=== PATIENT | female | born 1980 | race Caucasian/White ===

== ENCOUNTER 2022-12-18 17:43 | Emergency (ER) | payer OTHER, SELFPAY ==
[2022-12-18 17:49] VITALS: BP 130/88; PULSE 72; RESP 20; TEMP 36.2; O2SAT 100; BMI 32.1
--- NOTE | 2022-12-18 18:13 | ED.GENADULT ---
HPI - General Adult General Date Seen: 12/18/22 Chief complaint: Back Injury/Pain Stated complaint: Pain right below ribs in back, cramps Time Seen by Provider: 12/18/22 17:44 Source: patient Mode of arrival: ambulatory Limitations: no limitations History of Present Illness HPI narrative: Patient is a 42-year-old woman who presents for evaluation of some back pain, abdominal cramping and diarrhea. She says a couple weeks ago she was playing volleyball and she pulled a muscle in the right side of her back. It had been gradually improving but when driving home from the cabin today it seemed to get worse. She had also used if they are going to which she felt like made it worse. She says then she started to develop other symptoms and became worried that maybe it was not a pulled muscle after all. She has had some lower abdominal cramping today which she says feels sort of like period cramps but she has not had a period for 9 months or so, she believe she is perimenopausal. She is not having any vaginal bleeding. She did have some nonbloody diarrhea, little bit of nausea but she has had a normal appetite today, ate breakfast and lunch. She has not had any vomiting, denies fevers. She has not had urinary symptoms. She says she talked to a chiropractor friend who said that if she was having cramping she should be seen in the ER. Related Data Previous Rx's Medication Instructions Recorded amoxicillin 875 mg tablet 875 mg PO BID #20 tabs 04/21/22 Allergies Allergy/AdvReac Type Severity Reaction Status Date / Time No Known Drug Allergies Allergy Verified 04/21/22 07:49 Review of Systems Status of ROS: Reports: 10 or more systems reviewed and unremarkable except as noted in History and below PFSH PFS Social History Smoking Status: Never smoker Do you use any of these nicotine containing products: None Second hand tobacco smoke exposure: No How often do you have a drink containing alcohol: 2-3 times a week How many standard drinks containing alcohol do you have on a typical day: 1 or 2 How often do you have six or more drinks on one occasion: Monthly AUDIT-C Alcohol total score: 5 Non-prescribed substance use: denies use service: No Exam Narrative: Exam Narrative: Vital signs as noted above. In general, an alert, well-appearing patient. Head: Normocephalic, atraumatic. Eyes: Pupils are equal reactive. Extraocular movements are full. Conjunctivae are normal. ENT: Mucous membranes are moist. Throat is normal. Neck: Supple without lymphadenopathy. Heart: Regular rate and rhythm. No murmur or rub. Lungs: Clear bilaterally. No increased work of breathing, crackles or wheezes. No CVA tenderness. Back: She does have some reproducible tenderness in the right lower lateral ribcage. No bruising, no rashes. Abdomen: Soft and nontender. No organomegaly. Extremities: Well perfused. No edema. No calf tenderness. Pulses intact. Neurologic: Patient is alert and oriented to person and place. Speech is fluent. Face is symmetric. Moves all extremities equally. Affect: Normal. Skin: Warm and dry. Well perfused. Const: Vital Signs, click to edit/add: Vital Signs - 24 hr 12/18/22 17:49 Temperature 97.2 F L Pulse Rate [Pulse Oximeter] 72 Respiratory Rate 20 Blood Pressure [Ri ght Forearm] 130/88 Pulse Oximetry 100 Oxygen Delivery Me thod Room Air Documenting provider has reviewed patient's vital signs: yes Course Course Hospital Course: Overall she is well-appearing. Discussed that they abdominal cramping certainly can go along with the diarrhea which often is viral. Will check a urine and rule out urinary tract infection, pyelonephritis, screen for kidney stone. Her abdominal exam is very benign, I do not at this time see indication for imaging. Labs pending. She declines the need for fluids, medications for pain or nausea. Urinalysis is entirely negative. White blood cell count is normal, CRP negative. Hemoglobin 13. LFTs are normal with the exception of a mildly elevated ALT at 42. Lactate is 1.5. Have discussed with her that her labs are normal which she finds reassuring. I think she probably does have musculoskeletal back pain from a muscle strain a couple weeks ago and then coincidental onset of diarrhea which he says she is not overly surprising about as she has been on vacation, her diet has been poor, and she has been on the heat all we can. She denies recent antibiotics or non city water. Would recommend supportive care, ibuprofen, Tylenol, fluids. If not improving primary care follow-up. Return to ER for severe abdominal pain, fevers, vomiting, bloody stools or other acute changes. Vital Signs Vital signs: Initial Vital Signs Temperature 97.2 F L 12/18/22 17:49 Temperature Source Temporal Artery Scan 12/18/22 17:49 Pulse Rate 72 12/18/22 17:49 Pulse Rhythm Regular 12/18/22 17:49 Respiratory Rate 20 12/18/22 17:49 Blood Pressure 130/88 12/18/22 17:49 Blood Pressure Mean 102 12/18/22 17:49 Blood Pressure Position Sitting 12/18/22 17:49 Pulse Oximetry 100 12/18/22 17:49 Oxygen Delivery Method Room Air 12/18/22 17:49 Vital Signs Temperature 97.2 F L 12/18/22 17:49 Pulse Rate 72 12/18/22 17:49 Respiratory Rate 20 12/18/22 17:49 Blood Pressure 130/88 12/18/22 17:49 Pulse Oximetry 100 12/18/22 17:49 Oxygen Delivery Method Room Air 12/18/22 17:49 Temperature 97.2 F L 12/18/22 17:49 Pulse Rate 72 12/18/22 17:49 Respiratory Rate 12/18/22 17:49 Blood Pressure 130/88 12/18/22 17:49 Pulse Oximetry 100 12/18/22 17:49 Oxygen Delivery Method Room Air 12/18/22 17:49 Medical Decision Making Lab Data Labs: Lab Results 12/18/22 12/18/22 Range/Units 18:20 18:25 WBC 6.23 (4.50-11.00) K/uL RBC 4.46 (4.00-5.20) m/uL Hgb 13.0 (12.0-16.0) gm/dL Hct 39.3 (33.0-51.0) % MCV 88 (80-100) fL MCH 29 (26-34) pg MCHC 33 (32-36) gm/dL RDW Coeff of Robin 12.1 (11.5-15.5) % Plt Count 184 (140-440) K/uL Neut % (Auto) 60.4 (42.0-72.0) % Lymph % (Auto) 28.4 (20-44) % [place] % (Auto) 8.7 (0.0-11.0) % Eos % (Auto) 1.3 (0.0-7.0) % Baso % (Auto) 0.6 (0.0-3.0) % Neut # (Auto) 3.76 (1.7-7.0) K/uL Lymph # (Auto) 1.77 (0.90-2.90) K/uL [place] # (Auto) 0.50 (0.00-0.90) K/UL Eos # (Auto) 0.08 (0.00-0.50) K/uL Baso # (Auto) 0.04 (0.00-0.30) K/uL Sodium 139 (135-149) mmol/L Potassium 4.4 (3.6-5.1) mmol/L Chloride 103 (96-114) mmol/L Carbon Dioxide 26 (20-32) mmol/L BUN 16 (5-24) mg/dL Creatinine 0.9 (0.5-1.5) mg/dL Estimated Creat Clear 79.19 Estimated GFR 82 ml/min Glucose 98 (60-115) mg/dL Lactate 1.5 (0.5-1.9) mmol/L Calcium 9.5 (8.4-10.6) mg/dL Total Bilirubin 0.6 (0.1-1.5) mg/dL Direct Bilirubin 0.2 (0.0-0.5) mg/dL AST 35 (12-35) U/L ALT 42 H (4-35) U/L Alkaline Phosphatase 58 (40-150) U/L C-Reactive Protein < 0.5 L (0.5-1.0) mg/dL Total Protein 8.1 (6.0-8.3) g/dL Albumin 4.6 (3.3-5.0) g/dL Lipase 107 (23-300) U/L Urine Color Yellow (Yellow) Urine Appearance Clear (Clear) Urine pH 5.0 (5.0-8.5) Ur Specific [place] 1.025 (1.000-1.030) Urine Protein Negative (Negative) Urine Glucose (UA) Negative (Negative) Urine Ketones Negative (Negative) Urine Blood Negative (Negative) Urine Nitrite Negative (Negative) Urine Bilirubin Negative (Negative) Urine Urobilinogen 0.2 (0.2-1.0) Ur Leukocyte Esterase Negative (Negative) Urine RBC 0-2 (0-2) Urine WBC 0-2 (0-5) Ur Squamous Epith Cells None (None-Few) Urine Bacteria None (None) Discharge Plan Discharge Clinical Impression: Back pain, Diarrhea Patient Disposition: Home, Self-Care Condition: Stable Instructions: Acute Diarrhea (ED), Back Pain (ED) Additional Instructions: Okay to use ibuprofen or Tylenol if needed for back pain. Diarrhea should improve on its own over the next few days. If either the symptoms are persistent or worsening, follow up with primary care. Return to the ER for severe abdominal pain, bloody stools, high fevers, vomiting or other significant changes. Prescriptions: No Action amoxicillin 875 mg tablet 875 mg PO BID Qty: 20 0RF Follow Up/Referrals: Provider,Not a Local [Primary Care Provider] - Stand Alone Forms: [employer] Info Instructions
[2022-12-18 18:26] LABS: Lactate* 1.5 mmol/L (0.5-1.9)
[2022-12-18 18:27] LABS: Basophils Absolute Auto 0.04 K/uL (0.00-0.30); Basophils Percent Auto 0.6 % (0.0-3.0); Eosinophils Absolute Auto 0.08 K/uL (0.00-0.50); Eosinophils Percent Auto 1.3 % (0.0-7.0); Hematocrit 39.3 % (33.0-51.0); Immature Granulocytes Abs Auto 0.04 K/uL (0.00-0.30); Immature Granulocytes Pct Auto 0.6 %; Lymphocytes Absolute Auto 1.77 K/uL (0.90-2.90); Lymphocytes Percent Auto 28.4 % (20-44); Mean Corpuscular HGB Conc 33 gm/dL (32-36); Mean Corpuscular Hemoglobin 29 pg (26-34); Mean Corpuscular Volume 88 fL (80-100); Monocytes Percent Auto 8.7 % (0.0-11.0); Neutrophils Absolute Auto 3.76 K/uL (1.7-7.0); Neutrophils Percent Auto 60.4 % (42.0-72.0); Platelet Count* 184 K/uL (140-440); RDW Coefficient of Variation % 12.1 % (11.5-15.5); Red Blood Count 4.46 m/uL (4.00-5.20); White Blood Count* 6.23 K/uL (4.50-11.00)
[2022-12-18 18:32] LABS: Appearance Urine Clear (Clear); Bilirubin Urine Negative (Negative); Blood Urine Negative (Negative); Color Urine Yellow (Yellow); Glucose Urine Negative (Negative); Ketones Urine Negative (Negative); Leukocyte Esterase Urine Negative (Negative); Nitrite Urine Negative (Negative); Protein Urine Negative (Negative); Specific Gravity Urine 1.025 (1.000-1.030); Urobilinogen Urine 0.2 (0.2-1.0)
[2022-12-18 18:32] LABS: Slide Review Reflex No
[2022-12-18 18:41] LABS: Albumin* 4.6 g/dL (3.3-5.0); Chloride* 103 mmol/L (96-114); Sodium* 139 mmol/L (135-149)
[2022-12-18 18:42] LABS: Potassium* 4.4 mmol/L (3.6-5.1)
[2022-12-18 18:44] LABS: Creatinine* 0.9 mg/dL (0.5-1.5); Est. Creatinine Clearance* 79.19; Estimated Glomerular Filt Rate 82 ml/min
[2022-12-18 18:45] LABS: RBC Urine 0-2 (0-2); WBC Urine 0-2 (0-5)
[2022-12-18 18:45] LABS: Alanine Aminotransferase* 42 U/L (4-35); Aspartate Amino Transferase* 35 U/L (12-35); Bilirubin Direct* 0.2 mg/dL (0.0-0.5); Bilirubin Total* 0.6 mg/dL (0.1-1.5); Blood Urea Nitrogen* 16 mg/dL (5-24); Calcium* 9.5 mg/dL (8.4-10.6); Carbon Dioxide* 26 mmol/L (20-32); Glucose* 98 mg/dL (60-115); Lipase* 107 U/L (23-300); Total Protein* 8.1 g/dL (6.0-8.3)
[2022-12-18 18:58] LABS: C Reactive Protein* < 0.5 mg/dL (0.5-1.0)
[2022-12-18 19:02] LABS: Alkaline Phosphatase* 58 U/L (40-150)
== END 2022-12-18 19:09 | disposition home or self-care (01) ==
PROVIDERS: Emergency Provider Emergency Medicine
DX: M54.9 Dorsalgia, unspecified (principal); R19.7 Diarrhea, unspecified
CPT/HCPCS: 36415; 80048; 80076; 81001; 83605; 83690; 85025; 86140; 99283; 99284

== ENCOUNTER 2024-04-16 09:08 | Outpatient (CLI) | payer OTHER, SELFPAY | END 2024-04-16 09:09 | disposition home or self-care (01) | PROVIDERS: Visit Provider Physician Assistant Medical | DX: Z00.00 Encounter for general adult medical examination without abnormal findings (principal); R63.5 Abnormal weight gain; Z13.6 Encounter for screening for cardiovascular disorders; Z13.29 Encounter for screening for other suspected endocrine disorder | CPT/HCPCS: 80053; 80061; 84443 ==

== ENCOUNTER 2024-08-23 10:32 | Outpatient (CLI) | payer OTHER, SELFPAY | END 2024-08-23 10:33 | disposition home or self-care (01) | LOC: FRMREF 10:38 | PROVIDERS: PCP Physician Assistant Medical; Visit Provider Physician Assistant | DX: R19.7 Diarrhea, unspecified (principal) | CPT/HCPCS: 87086 ==

== ENCOUNTER 2025-06-19 09:52 | Outpatient (CLI) | payer OTHER, SELFPAY | END 2025-06-19 09:53 | disposition home or self-care (01) | PROVIDERS: PCP Physician Assistant Medical; Visit Provider Physician Assistant Medical | DX: Z13.9 Encounter for screening, unspecified (principal) | CPT/HCPCS: 80053; 80061; 84439; 84443 ==